=== PATIENT | female | born 1990 | race Caucasian/White ===

== ENCOUNTER 2017-05-28 15:53 | Emergency (ER) | payer MEDICAID, OTHER ==
[~2017-05-28] VITALS: Ht 154.9 cm; Wt 57.0 kg
[~2017-05-28 15:53] MED LIST: DOXY10TA PO; FLAG500T PO; IBUP600 PO; PERI8.6T PO; PREN1PAK2 PO
[2017-05-28 15:54] VITALS: BP 121/57; PULSE 90; RESP 20; TEMP 99; O2SAT 98
[2017-05-28 20:20] LABS: AUTOMATED NEUTROPHIL # 6.4 TH/MM3 (1.8-7.7); BASOPHIL % 0.2 % (0.0-2.0); HEMATOCRIT 45.5 % (35.0-46.0); HEMO FLAGS DIFF FINAL; LYMPH % 13.3 % (9.0-44.0); MEAN CELL VOLUME 93.9 FL (80.0-100.0); MEAN CORPUSCULAR HGB CONC 34.1 % (32.0-36.0); MONO % 4.8 % (0.0-8.0); NEUT % 81.7 % (16.0-70.0); PLATELET COUNT 235 TH/MM3 (150-450); RED BLOOD COUNT 4.85 MIL/MM3 (4.00-5.30); RED CELL DISTRIBUTION WIDTH 12.7 % (11.6-17.2); WHITE BLOOD COUNT 7.8 TH/MM3 (4.0-11.0)
[2017-05-28 20:22] LABS: BACTERIA, URINE RARE /hpf; BLOOD, URINE MOD (NEG); COMMENT (UR) CULT NOT INDICATED; CULTURE IF INDICATED CULT NOT INDICATED; GLUCOSE,URINE NEG (NEG); KETONE, URINE 40 mg/dL (NEG); MUCUS URINE MANY /lpf (OCC); NITRITE,URINE NEG (NEG); SQUAMOUS EPITHELIAL CELL URINE 3 /hpf (0-5); TRANSITIONAL EPI CELLS, URINE 1 /hpf; URINE COLOR YELLOW (YELLW/STRAW)
[2017-05-28] MEDS ORDERED: ONDANSETRON HCL 4 MG/2 ML VIAL IVP ONE (20:30)
[2017-05-28] MEDS ORDERED: SODIUM CHLOR 0.9% 1000 ML INJ 1,000 ML IV SCH (20:30)
[2017-05-28] MEDS ORDERED: KETOROLAC TROMETHAMINE 30 MG/ML (IVP) VIAL IV PUSH ONE (20:30)
[2017-05-28 20:31] LABS: ANION GAP 10 MEQ/L (5-15); AST (GOT) 12 U/L (15-37); BICARBONATE 26.3 MEQ/L (21.0-32.0); BLOOD UREA NITROGEN 17 MG/DL (7-18); CHLORIDE 103 MEQ/L (98-107); GLOMERULAR FILTRATION RATE 85 ML/MIN (>89); POTASSIUM 3.3 MEQ/L (3.5-5.1); SODIUM (NA) 139 MEQ/L (136-145)
[2017-05-28 20:32] LABS: ALT (GPT) 19 U/L (10-53)
[2017-05-28 20:34] LABS: ALKALINE PHOSPHATASE 48 U/L (45-117); TOTAL BILIRUBIN ADULT 0.9 MG/DL (0.2-1.0)
--- NOTE | 2017-05-28 20:35 | PD ---
HPI Chief Complaint: GI Complaint Time Seen by Provider: 20:31 Travel History International Travel<30 days: No Contact w/Intl Traveler<30days: No Traveled to known affect area: No History of Present Illness HPI This patient was examined in the presence of a female nurse. 26-year-old otherwise healthy female presents for evaluation of nausea, vomiting, diarrhea. Symptoms started yesterday evening at 11 PM. She reports nonbloody nonbilious emesis, multiple times throughout the day and night, as well as mucousy diarrhea. She reports that her son had similar symptoms 2 days ago which resolved and her younger child had similar symptoms 3 days ago which resolved. Her mother develops nausea and diarrhea yesterday as well. She also reports that friends that visit her house recently had the same symptoms. She denies any recent dietary changes and she is uncertain what that could've caused this. She reports that yesterday she had stuffed peppers with turkey. She is endorsing some upper abdominal pain which seems to be exacerbated by the retching. She has a headache from the vomiting as well. She denies objective fevers but she has had sweats and chills. She denies dysuria, flank pain. Denies recent travel. Denies any alcohol or drug use. She has no other complaints at this time. [facility] Past Medical History Asthma: Yes (EXERCISED INDUCED) Diminished Hearing: No Genitourinary: Yes (FREQUENT "UTI'S") Tetanus Vaccination: < 5 Years Influenza Vaccination: No ?: Not LMP: 05/27 : 4 Para: 2 Miscarriage: 2 Past Surgical History Tonsillectomy: Yes (ADENOIDS) Social History Alcohol Use: Yes (occ.) Tobacco Use: No Substance Use: No Allergies-Medications (Allergen,Severity, Reaction): Coded Allergies: No Known Allergies (Verified , 05/28/17) Uncoded Allergies: EGGPLANT (Allergy, Mild, HIVES, 04/29/06) Reported Meds & Prescriptions Reported Meds & Active Scripts Active Zofran (Ondansetron HCl) 4 Mg Tab 4 Mg PO Q6HR PRN Review of Systems Except as stated in HPI: all other systems reviewed are Neg Physical Exam Narrative GENERAL: Well-developed well-nourished female in no acute distress SKIN: Warm and dry. HEAD: Atraumatic. Normocephalic. EYES: Pupils equal and round. No scleral icterus. No injection or drainage. ENT: No nasal bleeding or discharge. Mucous membranes pink and moist. NECK: Trachea midline. No JVD. CARDIOVASCULAR: Regular rate and rhythm. No murmur appreciated. RESPIRATORY: No accessory muscle use. Clear to auscultation. Breath sounds equal bilaterally. GASTROINTESTINAL: Abdomen soft, minimal epigastric and left lower quadrant tenderness without guarding. No right lower quadrant tenderness to palpation. MUSCULOSKELETAL: No obvious deformities. No edema. NEUROLOGICAL: Awake and alert. No obvious cranial nerve deficits. Motor grossly within normal limits. Normal speech. PSYCHIATRIC: Appropriate mood and affect; insight and judgment normal. Data Data Last Documented VS Vital Signs Date Time Temp Pulse Resp B/P (MAP) Pulse Ox O2 Delivery O2 Flow Rate FiO2 05/28/17 20:59 99.5 75 17 124/55 (78) Room Air 05/28/17 15:54 98 Orders Orders Comprehensive Metabolic Panel (05/28/17 19:12) Complete Blood Count With Diff (05/28/17 19:12) Lipase (05/28/17 19:12) Urinalysis - C+S If Indicated (05/28/17 19:12) Ed Urine Pregnancytest Poc (05/28/17 19:12) Ondansetron Inj (Zofran Inj) (05/28/17 20:30) Sodium Chlor 0.9% 1000 Ml Inj (Ns 1000 M (05/28/17 20:30) Ketorolac Inj (Toradol Inj) (05/28/17 20:30) Labs Laboratory Tests Test 05/28/17 19:30 White Blood Count 7.8 TH/MM3 Red Blood Count 4.85 MIL/MM3 Hemoglobin 15.5 GM/DL Hematocrit 45.5 % Mean Corpuscular Volume 93.9 FL Mean Corpuscular Hemoglobin 32.0 PG Mean Corpuscular Hemoglobin Concent 34.1 % Red Cell Distribution Width 12.7 % Platelet Count 235 TH/MM3 Mean Platelet Volume 8.5 FL Neutrophils (%) (Auto) 81.7 % Lymphocytes (%) (Auto) 13.3 % Monocytes (%) (Auto) 4.8 % Eosinophils (%) (Auto) 0.0 % Basophils (%) (Auto) 0.2 % Neutrophils # (Auto) 6.4 TH/MM3 Lymphocytes # (Auto) 1.0 TH/MM3 Monocytes # (Auto) 0.4 TH/MM3 Eosinophils # (Auto) 0.0 TH/MM3 Basophils # (Auto) 0.0 TH/MM3 CBC Comment DIFF FINAL Differential Comment Urine Color YELLOW Urine Turbidity HAZY Urine pH 6.0 Urine Specific [place] 1.032 Urine Protein TRACE mg/dL Urine Glucose (UA) NEG mg/dL Urine Ketones 40 mg/dL Urine Occult Blood MOD Urine Nitrite NEG Urine Bilirubin NEG Urine Urobilinogen LESS THAN 2.0 MG/DL Urine Leukocyte Esterase NEG Urine RBC 4 /hpf Urine WBC 3 /hpf Urine Squamous Epithelial Cells 3 /hpf Urine Transitional Epithelial Cells 1 /hpf Urine Bacteria RARE /hpf Urine Mucus MANY /lpf Microscopic Urinalysis Comment CULT NOT INDICATED Blood Urea Nitrogen 17 MG/DL Creatinine 0.80 MG/DL Random Glucose 95 MG/DL Total Protein 8.3 GM/DL Albumin 4.6 GM/DL Calcium Level 9.0 MG/DL Alkaline Phosphatase 48 U/L Aspartate Amino Transf (AST/SGOT) 12 U/L Alanine Aminotransferase (ALT/SGPT) 19 U/L Total Bilirubin 0.9 MG/DL Sodium Level 139 MEQ/L Potassium Level 3.3 MEQ/L Chloride Level 103 MEQ/L Carbon Dioxide Level 26.3 MEQ/L Anion Gap 10 MEQ/L Estimat Glomerular Filtration Rate 85 ML/MIN Lipase 71 U/L MDM Medical Decision Making Medical Screen Exam Complete: Yes Emergency Medical Condition: Yes Medical Record Reviewed: Yes Differential Diagnosis Gastroenteritis, dehydration, electrolyte abnormality, gastritis, diverticulitis , colitis, obstruction, appendicitis Narrative Course 18-year-old female presents with nausea, vomiting, diarrhea since yesterday evening. All other members of her family have had similar symptoms in the past few days. Her children's symptoms have already resolved. Physical examination is reassuring. She does not appear acutely dehydrated. Her abdomen is soft with minimal tenderness in left lower quadrant and epigastrium. I suspect viral gastroenteritis based on the history and examination. The plan is for basic lab work, IV fluids, Toradol and Zofran. Potassium is 3.3. Urine reveals blood, 40 ketones, otherwise unremarkable. The patient feels improved after the administration of Zofran. The patient be given oral potassium chloride. She'll be discharged with a short course of Zofran to use as needed for nausea. Diagnosis Primary Impression: Gastroenteritis Additional Instructions: Medication as needed for nausea. Stay well hydrated. Slowly advance diet. Follow-up with primary care physician as needed and return for any acutely new or worsening symptoms. Med/Other Pt SpecificInfo: Prescription(s) given Scripts Ondansetron (Zofran) 4 Mg Tab 4 MG PO Q6HR Y for NAUSEA OR VOMITING, #20 TAB 0 Refills Prov: Giovanni Gallegos MD 05/28/17 Disposition: 01 DISCHARGE HOME Condition: Stable Grover Gordon May 28, 2017 20:35
[2017-05-28] MEDS ORDERED: ZOFR4TAB PO (20:42)
[2017-05-28 20:59] VITALS: BP 124/55; PULSE 75; RESP 17; TEMP 99.5
[2017-05-28] MEDS ORDERED: POTASSIUM CHLORIDE 20 MEQ CONTROLLED RELEASE TAB PO ONE (21:15)
[2017-05-28 21:50] VITALS: BP 104/54; PULSE 56; RESP 17; O2SAT 100
== END 2017-05-29 01:37 | disposition home or self-care (01) ==
LOC: NEPD 15:53
DX: K52.9 Noninfective gastroenteritis and colitis, unspecified (principal)
CPT/HCPCS: 80053; 81001; 83690; 84703; 85025; 96374; 96375; 99284; J1885; J2405; J7030